=== PATIENT | female | born 1995 | race Two or more races ===

== ENCOUNTER → 2018-08-22 | Outpatient (REF) | payer OTHER, MEDICAID | LOC: M SFHCWAGY 13:38 | PROVIDERS: ATTEND Nurse Practitioner Family | DX: Z12.4 Encounter for screening for malignant neoplasm of cervix (principal) ==

== ENCOUNTER → 2018-11-24 | Outpatient (CLI) | payer OTHER, BC ==
[2018-11-24 20:32] LABS: BASO # 0.1 10^3/uL (0.0-0.2); BASO % 1.1 % (0.0-1.0); EOS # 0.1 10^3/uL (0.0-0.5); EOS % 0.7 % (0.0-3.0); HEMOGLOBIN 13.7 g/dl (12.0-15.5); LYMPH # 2.2 10^3/uL (1.5-5.0); LYMPH % 26.3 % (24.0-44.0); MEAN CORPUSCULAR HGB CONC 33.4 g/dl (32.0-36.5); MEAN CORPUSCULAR VOLUME 89.7 fl (80.0-96.0); MONO # 0.6 10^3/uL (0.0-0.8); MONO % 6.9 % (0.0-5.0); NEUTROPHILS # 5.4 10^3/uL (1.5-8.5); NEUTROPHILS % 64.6 % (36.0-66.0); PLATELET COUNT, AUTOMATED 280 10^3/uL (150-450); RED BLOOD COUNT 4.57 10^6/uL (4.00-5.40); WHITE BLOOD COUNT 8.4 10^3/uL (4.0-10.0)
[2018-11-24 20:40] LABS: ALBUMIN 4.2 GM/DL (3.2-5.2); ALT/SGPT 11 U/L (12-78); BILIRUBIN,TOTAL 0.4 MG/DL (0.2-1.0); BLOOD UREA NITROGEN 11 MG/DL (7-18); CALCIUM LEVEL 9.6 MG/DL (8.5-10.1); CARBON DIOXIDE LEVEL 29 MEQ/L (21-32); CHLORIDE LEVEL 103 MEQ/L (98-107); CREATININE FOR GFR 0.52 MG/DL (0.55-1.30); GLOMERULAR FILTRATION RATE > 60.0 (>60); GLUCOSE, FASTING 78 MG/DL (70-100); LIPASE 91 U/L (73-393); POTASSIUM SERUM 4.3 MEQ/L (3.5-5.1); SODIUM LEVEL 140 MEQ/L (136-145); TOTAL PROTEIN 7.1 GM/DL (6.4-8.2)
== END ==
LOC: M WUC 17:44 → EEVIPCON 17:44
PROVIDERS: ATTEND Physician Assistant
DX: R10.816 Epigastric abdominal tenderness (principal)

== ENCOUNTER → 2019-11-01 | Outpatient (CLI) | payer OTHER, BC ==
[2019-11-01 18:33] LABS: ALBUMIN 3.5 GM/DL (3.2-5.2); ALT/SGPT 10 U/L (12-78); BILIRUBIN,TOTAL 0.4 MG/DL (0.2-1.0); BLOOD UREA NITROGEN 14 MG/DL (7-18); CALCIUM LEVEL 8.7 MG/DL (8.5-10.1); CARBON DIOXIDE LEVEL 28 MEQ/L (21-32); CHLORIDE LEVEL 108 MEQ/L (98-107); FREE T4 1.05 NG/DL (0.76-1.46); GLOMERULAR FILTRATION RATE > 60.0 (>60); GLUCOSE, FASTING 96 MG/DL (70-100); POTASSIUM SERUM 4.5 MEQ/L (3.5-5.1); SODIUM LEVEL 138 MEQ/L (136-145); TOTAL PROTEIN 6.4 GM/DL (6.4-8.2)
[2019-11-01 18:36] LABS: BASO # 0.1 10^3/uL (0.0-0.2); BASO % 1.1 % (0.0-1.0); EOS # 0.1 10^3/uL (0.0-0.5); HEMATOCRIT 35.6 % (36.0-47.0); HEMOGLOBIN 11.4 g/dl (12.0-15.5); LYMPH # 1.7 10^3/uL (1.5-5.0); LYMPH % 30.1 % (24.0-44.0); MEAN CORPUSCULAR HEMOGLOBIN 28.7 pg (27.0-33.0); MEAN CORPUSCULAR VOLUME 89.7 fl (80.0-96.0); MONO # 0.4 10^3/uL (0.0-0.8); NEUTROPHILS # 3.3 10^3/uL (1.5-8.5); NEUTROPHILS % 59.6 % (36.0-66.0); PLATELET COUNT, AUTOMATED 254 10^3/uL (150-450); RED BLOOD COUNT 3.97 10^6/uL (4.00-5.40); WHITE BLOOD COUNT 5.6 10^3/uL (4.0-10.0)
[2019-11-03 17:11] LABS: EBV VIRAL CAPSID AG IgG 97.5 U/mL (0.0-17.9); EBV VIRAL CAPSID AG IgM <36.0 U/mL (0.0-35.9); Lyme Disease IgG/IgM Antibodie <0.91 ISR (0.00-0.90); Lyme Disease IgM Ab Quantitati <0.80 index (0.00-0.79)
== END ==
LOC: M WUC 08:18
PROVIDERS: ATTEND Physician Assistant
DX: R53.83 Other fatigue (principal)

== ENCOUNTER → 2021-01-26 | Outpatient (CLI) | payer BC, OTHER | LOC: M WHC 11:30 | PROVIDERS: ATTEND Family Medicine | DX: Z53.9 Procedure and treatment not carried out, unspecified reason (principal); Z80.3 Family history of malignant neoplasm of breast; Z12.31 Encounter for screening mammogram for malignant neoplasm of breast ==

== ENCOUNTER → 2022-01-31 | Outpatient (CLI) | payer BC, OTHER ==
[2022-01-31 15:47] LABS: ALKALINE PHOSPHATASE 45 U/L (46-116); ALT/SGPT 12 U/L (7.0-40); AST/SGOT 23 U/L (<34); BILIRUBIN,TOTAL 0.6 MG/DL (0.3-1.2); BLOOD UREA NITROGEN 12 MG/DL (9-23); CALCIUM LEVEL 9.5 MG/DL (8.5-10.1); CARBON DIOXIDE LEVEL 28 MMOL/L (20-31); CHLORIDE LEVEL 103 MMOL/L (98-107); CREATININE FOR GFR 0.58 MG/DL (0.55-1.30); GLOMERULAR FILTRATION RATE > 60.0 (>60); GLUCOSE, FASTING 82 MG/DL (60-100); POTASSIUM SERUM 4.6 MMOL/L (3.5-5.1); SODIUM LEVEL 138 MMOL/L (136-145)
[2022-01-31 15:48] LABS: FREE T4 1.18 NG/DL (0.89-1.76); PROLACTIN 14.39 NG/ML; THYROID STIMULATING HORMONE 1.412 uIU/ML (0.55-4.78)
[2022-01-31 16:03] LABS: HEMOGLOBIN A1c 4.8 % (4.0-6.0)
== END ==
LOC: M PLALAB 12:37
PROVIDERS: ATTEND Nurse Practitioner Family
DX: N92.6 Irregular menstruation, unspecified (principal)

== ENCOUNTER 2022-07-30 08:53 | Inpatient (IN) | payer BC, OTHER ==
[~2022-07-30] VITALS: Ht 170.2 cm; Wt 68.1 kg
[2022-07-30] VITALS (12 sets, daily range): BP systolic 120–130; BP diastolic 68–99; TEMP 98.2–99; O2SAT 98–100
[2022-07-30] MEDS ORDERED: ZOLO25TA PO (09:15)
[2022-07-30 10:56] LABS: BASO # 0.1 10^3/uL (0.0-0.2); BASO % 1.4 % (0.0-1.0); EOS % 0.5 % (0.0-3.0); LYMPH # 1.7 10^3/uL (1.5-5.0); LYMPH % 26.3 % (24.0-44.0); MEAN CORPUSCULAR HEMOGLOBIN 19.3 pg (27.0-33.0); MEAN CORPUSCULAR HGB CONC 27.8 g/dl (32.0-36.5); MEAN CORPUSCULAR VOLUME 69.6 fl (80.0-96.0); MONO # 0.4 10^3/uL (0.0-0.8); MONO % 6.1 % (2.0-8.0); NEUTROPHILS # 4.3 10^3/uL (1.5-8.5); NEUTROPHILS % 65.2 % (36.0-66.0); PLATELET COUNT, AUTOMATED 377 10^3/uL (150-450); RED BLOOD COUNT 3.26 10^6/uL (4.00-5.40); WHITE BLOOD COUNT 6.5 10^3/uL (4.0-10.0)
[2022-07-30 11:00] LABS: HEMATOCRIT 22.7 % (36.0-47.0); HEMOGLOBIN 6.3 g/dl (12.0-15.5)
[2022-07-30 11:29] LABS: HCG, SERUM QUALITATIVE NEGATIVE (NEGATIVE)
[2022-07-30 11:30] LABS: BLOOD UREA NITROGEN 11 MG/DL (9-23); CALCIUM LEVEL 8.2 MG/DL (8.5-10.1); CARBON DIOXIDE LEVEL 26 MMOL/L (20-31); CHLORIDE LEVEL 104 MMOL/L (98-107); CREATININE FOR GFR 0.64 MG/DL (0.55-1.30); GLOMERULAR FILTRATION RATE > 60.0 (>60); GLUCOSE, FASTING 85 MG/DL (60-100); POTASSIUM SERUM 4.2 MMOL/L (3.5-5.1); SODIUM LEVEL 138 MMOL/L (136-145)
[2022-07-30 13:19] LABS: BASO # 0.1 10^3/uL (0.0-0.2); BASO % 1.2 % (0.0-1.0); EOS % 0.5 % (0.0-3.0); LYMPH # 1.3 10^3/uL (1.5-5.0); LYMPH % 22.6 % (24.0-44.0); MEAN CORPUSCULAR HEMOGLOBIN 19.9 pg (27.0-33.0); MEAN CORPUSCULAR HGB CONC 28.7 g/dl (32.0-36.5); MEAN CORPUSCULAR VOLUME 69.1 fl (80.0-96.0); MONO # 0.4 10^3/uL (0.0-0.8); MONO % 6.7 % (2.0-8.0); NEUTROPHILS # 3.9 10^3/uL (1.5-8.5); NEUTROPHILS % 68.6 % (36.0-66.0); PLATELET COUNT, AUTOMATED 282 10^3/uL (150-450); RED BLOOD COUNT 2.72 10^6/uL (4.00-5.40); WHITE BLOOD COUNT 5.7 10^3/uL (4.0-10.0)
[2022-07-30 13:20] LABS: HEMATOCRIT 18.8 % (36.0-47.0); HEMOGLOBIN 5.4 g/dl (12.0-15.5)
[2022-07-30] MEDS ORDERED: VIEN1TAB PO (13:58)
[2022-07-30] MEDS ORDERED: HOME MED LIST COMPLETE! XX SCH (14:00)
[2022-07-30 14:30] LABS: RSV AMPLIFICATION NEGATIVE (NEGATIVE)
[2022-07-30] MEDS: medroxyPROGESTERone 5MG TABLET PO SCH (14:53)
[2022-07-30] MEDS ORDERED: IBUPROFEN 800 MG TAB PO PRN (15:40)
[2022-07-30] MEDS: LR 1,000 ML IV SCH (16:29)
[2022-07-30] MEDS ORDERED: LEXA5TAB13 PO (20:25)
[2022-07-30 20:32] LABS: HEMATOCRIT 23.7 % (36.0-47.0)
[2022-07-30 20:39] LABS: HEMOGLOBIN 7.4 g/dl (12.0-15.5)
[2022-07-30] MEDS: ESCITALOPRAM OXALATE 5MG TABLET (LEXAPRO) PO SCH (21:48)
[2022-07-31] VITALS (13 sets, daily range): BP systolic 107–132; BP diastolic 68–84; TEMP 97.5–99.1; O2SAT 93–99
[2022-07-31 06:14] LABS: BASO # 0.1 10^3/uL (0.0-0.2); BASO % 1.1 % (0.0-1.0); EOS % 0.2 % (0.0-3.0); HEMATOCRIT 27.4 % (36.0-47.0); HEMOGLOBIN 8.7 g/dl (12.0-15.5); LYMPH # 1.1 10^3/uL (1.5-5.0); LYMPH % 13.7 % (24.0-44.0); MEAN CORPUSCULAR HEMOGLOBIN 22.7 pg (27.0-33.0); MEAN CORPUSCULAR HGB CONC 31.8 g/dl (32.0-36.5); MEAN CORPUSCULAR VOLUME 71.5 fl (80.0-96.0); MONO # 0.5 10^3/uL (0.0-0.8); MONO % 5.6 % (2.0-8.0); NEUTROPHILS # 6.5 10^3/uL (1.5-8.5); PLATELET COUNT, AUTOMATED 296 10^3/uL (150-450); RED BLOOD COUNT 3.83 10^6/uL (4.00-5.40); WHITE BLOOD COUNT 8.3 10^3/uL (4.0-10.0)
[2022-07-31] MEDS: LR 1,000 ML IV SCH ×3 (06:50→15:32)
[2022-07-31] MEDS: medroxyPROGESTERone 5MG TABLET PO SCH (10:22)
[2022-07-31] MEDS ORDERED: TRANEXAMIC ACID INJection 1,000 MG in D5W 100 ML IV ONE (14:00)
[2022-07-31] MEDS ORDERED: IRON SUCROSE 200 MG in NS 100 ML IV ONE (15:00)
[2022-07-31] MEDS: ESCITALOPRAM OXALATE 5MG TABLET (LEXAPRO) PO SCH (20:21)
[2022-08-01] MEDS: LR 1,000 ML IV SCH ×2 (01:58→07:40)
[2022-08-01 02:00] VITALS: BP_SYST 125; BP_SYST 130; BP_DIAS 77; BP_DIAS 80; TEMP 98.2; TEMP 98.6; O2SAT 98
[2022-08-01 06:00] VITALS: BP 121/75; TEMP 98.2; O2SAT 99
[2022-08-01 06:33] LABS: HEMATOCRIT 26.3 % (36.0-47.0); HEMOGLOBIN 7.9 g/dl (12.0-15.5); MEAN CORPUSCULAR HEMOGLOBIN 22.2 pg (27.0-33.0); MEAN CORPUSCULAR VOLUME 73.9 fl (80.0-96.0); PLATELET COUNT, AUTOMATED 271 10^3/uL (150-450); RED BLOOD COUNT 3.56 10^6/uL (4.00-5.40); WHITE BLOOD COUNT 7.3 10^3/uL (4.0-10.0)
[2022-08-01] MEDS: medroxyPROGESTERone 5MG TABLET PO SCH (08:10)
[2022-08-01] MEDS ORDERED: MEDR5TAB3 PO (08:46)
[2022-08-01 10:00] VITALS: BP 115/69; TEMP 98.4; O2SAT 99
== END 2022-08-01 10:29 | disposition home or self-care (01) | DRG 663 ==
LOC: M ED 08:53 → M ED INP 13:46 → ENRESERV 14:39 → M MSPAV 16:26
PROVIDERS: ADMIT Specialist; ATTEND Specialist
PROC: 30233N1 Transfusion of Nonautologous Red Blood Cells into Peripheral Vein, Percutaneous Approach (ICD-10-PCS; principal; 2022-07-30)
DX: D62 Acute posthemorrhagic anemia (principal); D25.9 Leiomyoma of uterus, unspecified; F32.A Depression, unspecified; Z79.899 Other long term (current) drug therapy

== ENCOUNTER 2022-08-17 19:08 | Emergency (ER) | payer BC, OTHER ==
[~2022-08-17 19:08] MED LIST: IBUP-1022 PO; LEXA5TAB13 PO; MEDR10TA9 PO; MEDR5TAB3 PO; OXYC1TAB23 PO; VIEN1TAB PO; ZOLO25TA PO
[2022-08-17 19:29] VITALS: TEMP 98.3
[2022-08-17] MEDS ORDERED: NS 1,000 ML IV ONE (19:50)
[2022-08-17] MEDS ORDERED: KETOROLAC 30 MG/ML 1ML VIAL IV ONE (19:50)
[2022-08-17 20:34] LABS: BASO % 0.5 % (0.0-1.0); EOS # 0.1 10^3/uL (0.0-0.5); EOS % 1.3 % (0.0-3.0); HEMATOCRIT 32.6 % (36.0-47.0); HEMOGLOBIN 9.9 g/dl (12.0-15.5); LYMPH # 0.5 10^3/uL (1.5-5.0); LYMPH % 8.1 % (24.0-44.0); MEAN CORPUSCULAR HEMOGLOBIN 23.2 pg (27.0-33.0); MEAN CORPUSCULAR HGB CONC 30.4 g/dl (32.0-36.5); MEAN CORPUSCULAR VOLUME 76.3 fl (80.0-96.0); MONO # 0.4 10^3/uL (0.0-0.8); MONO % 5.7 % (2.0-8.0); NEUTROPHILS # 5.2 10^3/uL (1.5-8.5); NEUTROPHILS % 83.9 % (36.0-66.0); PLATELET COUNT, AUTOMATED 451 10^3/uL (150-450); RED BLOOD COUNT 4.27 10^6/uL (4.00-5.40); WHITE BLOOD COUNT 6.2 10^3/uL (4.0-10.0)
[2022-08-17 20:45] LABS: INR 0.94; PROTHROMBIN TIME 12.8 SECONDS (12.5-14.5)
[2022-08-17 20:46] LABS: ERYTHROCYTE SEDIMENTATION RATE 11 mm/hr (0-20); PARTIAL THROMBOPLASTIN TIME 28.7 SECONDS (24.8-34.2)
[2022-08-17 20:48] LABS: D-DIMER QUANT 1983.94 ng/ml (<500)
[2022-08-17 20:50] LABS: CK-MB VALUE MASS < 1.0 NG/ML (<3.6)
[2022-08-17 20:51] LABS: ALBUMIN 3.2 G/DL (3.2-5.2); ALKALINE PHOSPHATASE 44 U/L (46-116); ALT/SGPT 9 U/L (7.0-40); AST/SGOT < 8 U/L (<34); BILIRUBIN,DIRECT 0.1 MG/DL (<0.4); BILIRUBIN,TOTAL 0.5 MG/DL (0.3-1.2); CPK CREATINE PHOSPHOKINASE 16 U/L (34-145); MAGNESIUM LEVEL 1.8 MG/DL (1.8-2.4); MB/CK RELATIVE INDEX 6.25 (< OR =4); TOTAL PROTEIN 5.7 G/DL (5.7-8.2)
[2022-08-17] MEDS ORDERED: ISOVUE-370 76% 100ML VIAL As Ordered ONE (21:33)
[2022-08-17 21:47] LABS: RSV AMPLIFICATION NEGATIVE (NEGATIVE)
[2022-08-17 22:00] VITALS: BP 126/68
[2022-08-17 22:08] VITALS: O2SAT 99
[2022-08-17] MEDS ORDERED: ONDA4TAB6 PO ×2 (22:46→23:22)
[2022-08-17] MEDS ORDERED: MIRA3350 PO ×2 (22:46→23:22)
== END 2022-08-17 23:25 | disposition home or self-care (01) ==
LOC: EDBD 19:08 → M ED 19:08
DX: J98.11 Atelectasis (principal); E86.0 Dehydration; K59.00 Constipation, unspecified; K21.9 Gastro-esophageal reflux disease without esophagitis; F32.A Depression, unspecified; Z79.83 Long term (current) use of bisphosphonates; Z79.899 Other long term (current) drug therapy
CPT/HCPCS: 71045; 71275; 74177; 80047; 80076; 81001; 82550; 82553; 83605; 83735; 84484; 85025; 85379; 85610; 85652; 85730; 86140; 87040; 87077; 87631; 93005; 93971; 94010; 96361; 96374; 99285; J1885; Q9967

== ENCOUNTER → 2022-12-24 | Outpatient (REF) | payer OTHER ==
[~2022-12-24] MED LIST changes: +MIRA3350 PO; +ONDA4TAB6 PO
[2022-12-25 19:11] LABS: TESTOSTERONE FREE (DIRECT) 1.7 pg/mL (0.0-4.2)
== END ==
LOC: M SFHCCLAY 08:06
PROVIDERS: ATTEND Nurse Practitioner Family
DX: L68.9 Hypertrichosis, unspecified (principal)

== ENCOUNTER → 2023-02-04 | Outpatient (REF) | payer OTHER | LOC: M SFHCWAGY 12:49 | PROVIDERS: ATTEND Specialist | DX: Z12.4 Encounter for screening for malignant neoplasm of cervix (principal) | CPT/HCPCS: 87624; G0123 ==

== ENCOUNTER → 2023-06-03 | Outpatient (CLI) | payer BC ==
[2023-06-03 17:14] LABS: FREE T4 1.25 NG/DL (0.89-1.76); PROLACTIN 17.15 NG/ML; THYROID STIMULATING HORMONE 1.297 uIU/ML (0.55-4.78)
[2023-06-03 17:15] LABS: ESTRADIOL 32.6 PG/ML; PROGESTERONE 0.7 NG/ML
[2023-06-05 08:11] LABS: TESTOSTERONE FREE (DIRECT) 2.9 pg/mL (0.0-4.2)
== END ==
LOC: M PLALAB 15:12
PROVIDERS: ATTEND Specialist
DX: N92.6 Irregular menstruation, unspecified (principal)

== ENCOUNTER → 2023-11-27 | Outpatient (CLI) | payer BC ==
[~2023-11-27] MED LIST changes: +ONDA-282 PO; -ONDA4TAB6 PO
== END ==
LOC: M WHC 14:24
PROVIDERS: ATTEND Specialist
DX: D25.1 Intramural leiomyoma of uterus (principal); N83.202 Unspecified ovarian cyst, left side

== ENCOUNTER → 2024-04-28 | Outpatient (REF) | payer BC ==
[2024-04-28 18:49] LABS: BASO # 0.1 10^3/uL (0.0-0.2); EOS # 0.1 10^3/uL (0.0-0.5); EOS % 0.9 % (0.0-3.0); HEMATOCRIT 41.2 % (36.0-47.0); HEMOGLOBIN 13.7 g/dl (12.0-15.5); LYMPH % 24.1 % (24.0-44.0); MEAN CORPUSCULAR HEMOGLOBIN 29.7 pg (27.0-33.0); MEAN CORPUSCULAR HGB CONC 33.3 g/dl (32.0-36.5); MEAN CORPUSCULAR VOLUME 89.2 fl (80.0-96.0); MONO # 0.6 10^3/uL (0.0-0.8); MONO % 6.7 % (2.0-8.0); NEUTROPHILS # 5.5 10^3/uL (1.5-8.5); NEUTROPHILS % 66.9 % (36.0-66.0); PLATELET COUNT, AUTOMATED 276 10^3/uL (150-450); RED BLOOD COUNT 4.62 10^6/uL (4.00-5.40); WHITE BLOOD COUNT 8.2 10^3/uL (4.0-10.0)
[2024-04-28 19:12] LABS: ALBUMIN 3.9 G/DL (3.2-5.2); ALKALINE PHOSPHATASE 48 U/L (35-104); ALT/SGPT < 9 U/L (7.0-40); AST/SGOT 8 U/L (<34); BILIRUBIN,TOTAL 0.6 MG/DL (0.3-1.2); BLOOD UREA NITROGEN 12 MG/DL (9-23); CALCIUM LEVEL 9.4 MG/DL (8.5-10.1); CARBON DIOXIDE LEVEL 28 MMOL/L (20-31); CHLORIDE LEVEL 104 MMOL/L (98-107); CREATININE FOR GFR 0.63 MG/DL (0.55-1.30); GLOMERULAR FILTRATION RATE > 60.0 (>60); GLUCOSE, FASTING 81 MG/DL (60-100); POTASSIUM SERUM 4.1 MMOL/L (3.5-5.1); SODIUM LEVEL 139 MMOL/L (136-145)
[2024-04-28 19:14] LABS: TESTOSTERONE 39 NG/DL (14-76)
== END ==
LOC: M SFHCCLAY 13:36
PROVIDERS: ATTEND Nurse Practitioner Family
DX: R10.2 Pelvic and perineal pain (principal); D25.9 Leiomyoma of uterus, unspecified; R10.84 Generalized abdominal pain; R68.82 Decreased libido; R30.0 Dysuria

== ENCOUNTER → 2024-04-28 | Outpatient (REF) | payer BC | LOC: M SFHCCLAY 16:48 | PROVIDERS: ATTEND Nurse Practitioner Family | DX: R30.0 Dysuria (principal) ==

== ENCOUNTER → 2024-11-02 | Outpatient (REF) | payer OTHER ==
[~2024-11-02] MED LIST changes: -IBUP-1022 PO; +IBUP600T42 PO
[2024-11-02 13:44] LABS: APPEARANCE, URINE CLOUDY (CLEAR); BACTERIA, URINE AUTO 1+ (NEGATIVE); BILIRUBIN, URINE AUTO NEGATIVE (NEGATIVE); BLOOD, URINE BLOOD 1+ (NEGATIVE); GLUCOSE, URINE (UA) AUTO NEGATIVE (NEGATIVE); KETONE, URINE AUTO NEGATIVE (NEGATIVE); LEUKOCYTE ESTERASE, URINE AUTO 3+ (NEGATIVE); MUCUS, URINE SMALL (NEGATIVE); NITRITE, URINE AUTO NEGATIVE (NEGATIVE); PROTEIN, URINE AUTO 1+ mg/dL (NEGATIVE); RBC, URINE AUTO 6 /HPF (0-3); SPECIFIC GRAVITY URINE AUTO 1.025 (1.002-1.035); SQUAMOUS EPITHELIAL CELL UR AU 44 /HPF (0-6); UROBILINOGEN, URINE AUTO 0.2 mg/dL (0.0-2.0); WBC, URINE AUTO 165 /HPF (0-3)
== END ==
LOC: M SFHCWAGY 12:57
PROVIDERS: ATTEND Specialist
DX: R30.0 Dysuria (principal)